=== PATIENT | male | born 1945 | race Caucasian/White ===

== ENCOUNTER 2017-11-23 12:48 | Emergency (ER) | payer MEDICARE, MEDICAID ==
[2017-11-23] MEDS ORDERED: SODIUM CHLORIDE FLUSH 10ML SYR IVF ONE (13:30)
[2017-11-23 13:50] LABS: ALBUMIN 3.3 g/dL (3.4-5.0); ANION GAP 13 mmol/L (5-15); CHLORIDE 107 mmol/L (98-107)
[2017-11-23 13:52] LABS: BASOPHILS # (AUTO) 0.03 x10^3/uL (0-0.1); BASOPHILS % (AUTO) 0 % (0-1); EOSINOPHILS # (AUTO) 0.12 x10^3/uL (0-0.4); EOSINOPHILS % (AUTO) 1 % (1-7); LYMPHOCYTES % (AUTO) 10 % (22-44); MD NO; MEAN CORPUSCULAR HEMOGLOBIN 29.3 pg (27.5-34.5); MEAN CORPUSCULAR HGB CONC 33.5 g/dL (33.2-36.2); MEAN CORPUSCULAR VOLUME 87.3 fL (81-97); MEAN PLATELET VOLUME 8.4 fL (7.4-10.4); MONOCYTES # (AUTO) 0.66 x10^3/uL (0.2-0.8); MONOCYTES % (AUTO) 7 % (2-9); NEUTROPHILS # (AUTO) 8.26 x10^3/uL (1.8-6.8); NEUTROPHILS % (AUTO) 82 % (42-75); PLATELET COUNT 303 x10^3/uL (130-400); RED BLOOD COUNT 4.08 x10^6/uL (4.38-5.82); RED CELL DISTRIBUTION WIDTH 14.6 % (9.4-14.8)
[2017-11-23 13:55] LABS: ALANINE AMINOTRANSFERASE 21 U/L (12-78); ALKALINE PHOSPHATASE 87 U/L (45-117); BILIRUBIN,TOTAL 0.2 mg/dL (0.2-1.0); CALCIUM 8.2 mg/dL (8.5-10.1); CREATININE 1.28 mg/dL (0.7-1.3); INTERNATIONAL NORMALIZED RATIO 0.93 (0.93-1.1); PROTHROMBIN TIME 9.7 Seconds (9.6-11.5); TOTAL PROTEIN 6.3 g/dL (6.4-8.2); TROPONIN I < 0.015 ng/mL (0.000-0.045)
[2017-11-23] MEDS ORDERED: METF500T5 PO (14:48)
[2017-11-23] MEDS ORDERED: SODIUM CHLORIDE 0.9% 1,000ML IVBOLUS ONE (16:30)
[2017-11-23 18:59] VITALS: BP 153/89
== END 2017-11-23 20:35 | disposition home or self-care (01) ==
LOC: ED 14:41
DX: R55 Syncope and collapse (principal); E11.9 Type 2 diabetes mellitus without complications
CPT/HCPCS: 36415; 71045; 80053; 84484; 85025; 85610; 85730; 93005; 96360; 99285; J7030

== ENCOUNTER 2018-01-10 15:19 | Inpatient (IN) | payer MEDICARE, MEDICAID ==
[~2018-01-10] VITALS: Ht 175.3 cm; Wt 79.5 kg
[~2018-01-10 15:19] MED LIST: METF500T17 PO
[2018-01-10] MEDS ORDERED: SODIUM CHLORIDE 0.9% 1,000ML IVBOLUS ONE (16:00)
[2018-01-10 16:19] LABS: BASOPHILS # (AUTO) 0.03 x10^3/uL (0-0.1); BASOPHILS % (AUTO) 0 % (0-1); EOSINOPHILS # (AUTO) 0.77 x10^3/uL (0-0.4); EOSINOPHILS % (AUTO) 7 % (1-7); LYMPHOCYTES # (AUTO) 1.12 x10^3/uL (1-3.4); LYMPHOCYTES % (AUTO) 11 % (22-44); MD NO; MEAN CORPUSCULAR HEMOGLOBIN 28.7 pg (27.5-34.5); MEAN CORPUSCULAR HGB CONC 33.6 g/dL (33.2-36.2); MEAN CORPUSCULAR VOLUME 85.2 fL (81-97); MEAN PLATELET VOLUME 8.8 fL (7.4-10.4); MONOCYTES % (AUTO) 6 % (2-9); NEUTROPHILS # (AUTO) 7.91 x10^3/uL (1.8-6.8); NEUTROPHILS % (AUTO) 76 % (42-75); PLATELET COUNT 293 x10^3/uL (130-400); RED CELL DISTRIBUTION WIDTH 14.4 % (9.4-14.8)
[2018-01-10 16:21] LABS: INTERNATIONAL NORMALIZED RATIO 0.98 (0.93-1.1); PROTHROMBIN TIME 10.2 Seconds (9.6-11.5)
[2018-01-10 16:25] LABS: ALANINE AMINOTRANSFERASE 21 U/L (12-78); ALBUMIN 3.5 g/dL (3.4-5.0); ANION GAP 8 mmol/L (5-15); CHLORIDE 109 mmol/L (98-107)
[2018-01-10 16:30] LABS: ALKALINE PHOSPHATASE 134 U/L (45-117); BILIRUBIN,TOTAL 0.3 mg/dL (0.2-1.0); TROPONIN I < 0.015 ng/mL (0.000-0.045)
[2018-01-10 18:03] VITALS: BP 157/93
[2018-01-10] MEDS ORDERED: ACETAMINOPHEN 325 MG TABLET PO PRN (18:30)
[2018-01-10] MEDS ORDERED: ONDANSETRON ODT 4 MG PO PRN (18:30)
[2018-01-10] MEDS: HEPARIN 5,000 UNITS/ML, 1ML SQ SCH (18:38)
[2018-01-10] MEDS: SODIUM CHLORIDE 0.9% 1,000 ML IV SCH (18:43)
[2018-01-10 19:07] VITALS: BP 154/91
[2018-01-10 19:24] LABS: HEMOGLOBIN A1C 11.4 % (4.2-6.3)
[2018-01-10] MEDS ORDERED: GLUCAGON 1 MG IM PRN (20:30)
[2018-01-10] MEDS ORDERED: DEXTROSE 50%, 50ML SYRINGE IVPush PRN (20:30)
[2018-01-10] MEDS ORDERED: DEXTROSE 4 GM TAB.CHEW PO PRN (20:30)
[2018-01-10] MEDS ORDERED: INSULIN LISPRO 100 UNITS/ML, PEN SQ-INSULIN SCH (21:00)
[2018-01-10 21:30] LABS: MICROSCOPIC NOT IND
[2018-01-10 21:37] LABS: CULTURE INDICATED? NO
[2018-01-10] MEDS: SODIUM CHLORIDE FLUSH 10ML SYR IVF SCH (22:13)
[2018-01-10] MEDS: INSULIN LISPRO 100 UNITS/ML, PEN SQ-INSULIN SCH (22:13)
[2018-01-11] VITALS (10 sets, daily range): BP systolic 108–161; BP diastolic 65–93
[2018-01-11] MEDS: SODIUM CHLORIDE 0.9% 1,000 ML IV SCH ×2 (02:27→13:24)
[2018-01-11] MEDS: HEPARIN 5,000 UNITS/ML, 1ML SQ SCH ×3 (02:27→20:13)
[2018-01-11 05:58] LABS: BASOPHILS # (AUTO) 0.02 x10^3/uL (0-0.1); BASOPHILS % (AUTO) 0 % (0-1); EOSINOPHILS # (AUTO) 0.75 x10^3/uL (0-0.4); EOSINOPHILS % (AUTO) 9 % (1-7); LYMPHOCYTES # (AUTO) 2.07 x10^3/uL (1-3.4); LYMPHOCYTES % (AUTO) 25 % (22-44); MD NO; MEAN CORPUSCULAR HEMOGLOBIN 28.3 pg (27.5-34.5); MEAN CORPUSCULAR HGB CONC 33.4 g/dL (33.2-36.2); MEAN CORPUSCULAR VOLUME 84.5 fL (81-97); MEAN PLATELET VOLUME 8.2 fL (7.4-10.4); MONOCYTES # (AUTO) 0.67 x10^3/uL (0.2-0.8); MONOCYTES % (AUTO) 8 % (2-9); NEUTROPHILS # (AUTO) 4.76 x10^3/uL (1.8-6.8); NEUTROPHILS % (AUTO) 58 % (42-75); PLATELET COUNT 262 x10^3/uL (130-400); RED BLOOD COUNT 3.95 x10^6/uL (4.38-5.82)
[2018-01-11 06:11] LABS: CHLORIDE 107 mmol/L (98-107)
[2018-01-11 06:30] LABS: ALANINE AMINOTRANSFERASE 18 U/L (12-78); ALKALINE PHOSPHATASE 107 U/L (45-117); ANION GAP 9 mmol/L (5-15); BILIRUBIN,TOTAL 0.3 mg/dL (0.2-1.0); CALCIUM 8.2 mg/dL (8.5-10.1); CHOL/HDL RATIO 4.1; CHOLESTEROL, TOTAL 152 mg/dL (140-239); CREATININE 1.02 mg/dL (0.7-1.3); HDL CHOL % 24 % (26-37); HDL CHOLESTEROL (DIRECT) 37 mg/dL (40-60); LDL CHOLESTEROL,CALCULATED 96 mg/dL (54-169); LDL/HDL RATIO 2.6 (0.5-3.0); TOTAL PROTEIN 5.9 g/dL (6.4-8.2); TRIGLYCERIDES 94 mg/dL (50-200); VLDL CHOLESTEROL 19 mg/dL (0-25)
[2018-01-11] MEDS: SODIUM CHLORIDE FLUSH 10ML SYR IVF SCH ×2 (09:10→21:52)
[2018-01-11] MEDS: INSULIN LISPRO 100 UNITS/ML, PEN SQ-INSULIN SCH ×4 (09:10→21:53)
[2018-01-11] MEDS ORDERED: MAGNESIUM SULFATE PMX 4GM/100M 100 ML IV ONE (11:30)
[2018-01-11 12:33] LABS: MICROSCOPIC NOT IND
[2018-01-11 12:40] LABS: CULTURE INDICATED? NO
[2018-01-11] MEDS ORDERED: SERT50TA5 PO (15:34)
[2018-01-11] MEDS ORDERED: CYAN100T PO (15:34)
[2018-01-11] MEDS ORDERED: ASPI81TA50 PO (15:34)
[2018-01-11] MEDS ORDERED: PSYL1PAC9 PO (15:34)
[2018-01-11] MEDS ORDERED: SITA50TA PO (15:34)
[2018-01-11] MEDS ORDERED: LEVO50TA5 PO (15:34)
[2018-01-11] MEDS ORDERED: LISI-167 PO (15:34)
[2018-01-11] MEDS ORDERED: ATOR20TA9 PO (15:34)
[2018-01-11] MEDS ORDERED: GABA300C10 PO (15:34)
[2018-01-11] MEDS ORDERED: METF10007 PO (15:34)
[2018-01-11] MEDS ORDERED: BENZ-17 PO (16:55)
[2018-01-11] MEDS ORDERED: ALBU18HF INH (16:55)
[2018-01-11] MEDS ORDERED: ACET325T26 PO (16:55)
[2018-01-11] MEDS ORDERED: TIZA2CAP PO (16:55)
[2018-01-11] MEDS ORDERED: BISM262O17 PO (17:04)
[2018-01-11] MEDS ORDERED: ATORVASTATIN 20 MG TABLET PO SCH (21:00)
[2018-01-11] MEDS: GABAPENTIN 300 MG CAPSULE PO SCH (21:52)
[2018-01-12 01:24] VITALS: BP 161/91
[2018-01-12] MEDS: SODIUM CHLORIDE 0.9% 1,000 ML IV SCH ×2 (01:34→08:10)
[2018-01-12 02:00] VITALS: BP 165/92
[2018-01-12] MEDS: HEPARIN 5,000 UNITS/ML, 1ML SQ SCH ×2 (03:38→11:20)
[2018-01-12] MEDS ORDERED: LEVOTHYROXINE 50 MCG TABLET PO SCH (06:00)
[2018-01-12 06:20] LABS: BASOPHILS # (AUTO) 0.04 x10^3/uL (0-0.1); BASOPHILS % (AUTO) 1 % (0-1); EOSINOPHILS # (AUTO) 0.93 x10^3/uL (0-0.4); EOSINOPHILS % (AUTO) 11 % (1-7); LYMPHOCYTES % (AUTO) 25 % (22-44); MD NO; MEAN CORPUSCULAR HEMOGLOBIN 28.5 pg (27.5-34.5); MEAN CORPUSCULAR HGB CONC 33.1 g/dL (33.2-36.2); MEAN PLATELET VOLUME 8.2 fL (7.4-10.4); MONOCYTES # (AUTO) 0.61 x10^3/uL (0.2-0.8); MONOCYTES % (AUTO) 7 % (2-9); NEUTROPHILS # (AUTO) 5.06 x10^3/uL (1.8-6.8); NEUTROPHILS % (AUTO) 57 % (42-75); PLATELET COUNT 258 x10^3/uL (130-400); RED BLOOD COUNT 3.95 x10^6/uL (4.38-5.82); RED CELL DISTRIBUTION WIDTH 14.5 % (9.4-14.8)
[2018-01-12 06:29] LABS: ANION GAP 7 mmol/L (5-15); CALCIUM 8.1 mg/dL (8.5-10.1); CHLORIDE 110 mmol/L (98-107); CREATININE 0.82 mg/dL (0.7-1.3)
[2018-01-12] MEDS: INSULIN LISPRO 100 UNITS/ML, PEN SQ-INSULIN SCH ×2 (07:00→11:19)
[2018-01-12 08:07] VITALS: BP 162/97
[2018-01-12] MEDS: SODIUM CHLORIDE FLUSH 10ML SYR IVF SCH (08:10)
[2018-01-12] MEDS: GABAPENTIN 300 MG CAPSULE PO SCH (08:10)
[2018-01-12] MEDS ORDERED: SERTRALINE 50MG TABLET PO SCH (09:00)
[2018-01-12] MEDS ORDERED: CYANOCOBALOMIN 100MCG TABLET PO SCH (09:00)
[2018-01-12] MEDS ORDERED: ASPIRIN 81 MG TABLET EC PO SCH (10:00)
[2018-01-12 13:04] VITALS: BP 159/85
[2018-01-13] MEDS ORDERED: ASPIRIN 81 MG TABLET EC PO SCH (09:00)
== END 2018-01-12 14:34 | disposition home or self-care (01) | DRG 312 ==
LOC: ED 17:11 → 4WST 17:12 → ED 17:49
PROVIDERS: ADMIT Hospitalist; ATTEND Hospitalist
PROC: 0T9B70Z Drainage of Bladder with Drainage Device, Via Natural or Artificial Opening (ICD-10-PCS; principal; 2018-01-10)
DX: I95.1 Orthostatic hypotension (principal); N17.0 Acute kidney failure with tubular necrosis; E87.2 Acidosis; E11.65 Type 2 diabetes mellitus with hyperglycemia; E86.9 Volume depletion, unspecified; I10 Essential (primary) hypertension; Z91.19 Patient's noncompliance with other medical treatment and regimen; E78.5 Hyperlipidemia, unspecified; D72.829 Elevated white blood cell count, unspecified; E83.42 Hypomagnesemia; Z87.891 Personal history of nicotine dependence; Z87.820 Personal history of traumatic brain injury; Z79.84 Long term (current) use of oral hypoglycemic drugs; Z99.3 Dependence on wheelchair; Z88.0 Allergy status to penicillin
CPT/HCPCS: 36415; 71045; 80048; 80053; 80061; 81003; 82947; 82962; 83036; 83605; 83690; 83735; 83880; 84100; 84443; 84484; 85025; 85610; 93005; 93306; 96372; 99291; G0378; J1644; J1815; J3475; J7030

== ENCOUNTER 2018-06-09 14:40 | Inpatient (IN) | payer MEDICARE, MEDICAID ==
[~2018-06-09] VITALS: Ht 175.3 cm; Wt 79.7 kg
[~2018-06-09 14:40] MED LIST changes: +ACET325T26 PO; +ALBU18HF INH; +ASPI81TA50 PO; +ATOR-2 PO; +ATOR20TA37 PO; +BENZ-17 PO; +BISM262O17 PO; +CARV3.1212 PO; +CYAN100T PO; +DOXY100T PO; +GABA300C10 PO; +INSU100I13 SQ-INSULIN; +LEVO50TA5 PO; +LISI-167 PO; +METF10007 PO; +PSYL1PAC9 PO; +SERT50TA28 PO; +SITA50TA PO; +TICA90TA PO; +TIZA2CAP PO
[2018-06-09] MEDS ORDERED: SODIUM CHLORIDE FLUSH 10ML SYR IVF ONE (15:00)
--- NOTE | 2018-06-09 15:20 | NUR ---
PT SENT FROM [facility] FOR BLOOD IN THE CATHETER SINCE YESTERDAY. PT DENIES ANY PAIN OR ANY OTHER COMPLAINT. IV STARTED AND LABS COLLECTED. PT ON MONITOR. WILL START [address] DRAKE.
[2018-06-09 15:25] LABS: BASOPHILS # (AUTO) 0.01 x10^3/uL (0-0.1); BASOPHILS % (AUTO) 0 % (0-1); EOSINOPHILS % (AUTO) 3 % (1-7); LYMPHOCYTES # (AUTO) 1.22 x10^3/uL (1-3.4); LYMPHOCYTES % (AUTO) 12 % (22-44); MD NO; MEAN CORPUSCULAR HEMOGLOBIN 28.1 pg (27.5-34.5); MEAN CORPUSCULAR HGB CONC 32.9 g/dL (33.2-36.2); MEAN CORPUSCULAR VOLUME 85.3 fL (81-97); MEAN PLATELET VOLUME 8.3 fL (7.4-10.4); MONOCYTES # (AUTO) 0.71 x10^3/uL (0.2-0.8); MONOCYTES % (AUTO) 7 % (2-9); NEUTROPHILS # (AUTO) 8.05 x10^3/uL (1.8-6.8); NEUTROPHILS % (AUTO) 78 % (42-75); PLATELET COUNT 379 x10^3/uL (130-400); RED BLOOD COUNT 4.51 x10^6/uL (4.38-5.82); RED CELL DISTRIBUTION WIDTH 13.6 % (9.4-14.8)
[2018-06-09] MEDS ORDERED: BRIM5DRO2 EACHEYE (15:26)
[2018-06-09 15:34] LABS: ALANINE AMINOTRANSFERASE 23 U/L (12-78); ALBUMIN 3.4 g/dL (3.4-5.0); ANION GAP 8 mmol/L (5-15); CALCIUM 8.8 mg/dL (8.5-10.1); CHLORIDE 105 mmol/L (98-107)
[2018-06-09 15:38] LABS: ALKALINE PHOSPHATASE 123 U/L (45-117); BILIRUBIN,TOTAL 0.4 mg/dL (0.2-1.0); CREATININE 1.33 mg/dL (0.7-1.3); TOTAL PROTEIN 7.1 g/dL (6.4-8.2)
[2018-06-09 15:42] LABS: INTERNATIONAL NORMALIZED RATIO 0.94 (0.93-1.1)
--- NOTE | 2018-06-09 15:50 | NUR ---
PT IN RAD.
[2018-06-09] MEDS ORDERED: OMNIPAQUE 350 MG/ML, 150 ML BOTTLE ONE (15:55)
--- NOTE | 2018-06-09 16:12 | NUR ---
PT IN RAD.
[2018-06-09] MEDS ORDERED: SODIUM CHLORIDE 0.9% 1,000 ML IV SCH (16:42)
--- NOTE | 2018-06-09 16:45 | NUR ---
HOSPITALIST AT BEDSIDE. [address] WAY CUI IRRIGATION STARTED AND URINE COLOR TURNED LIGHT PINK ALMOST IMMEDIATELY. PT TOLERATED PROCEDURE WELL.
[2018-06-09] MEDS ORDERED: ONDANSETRON ODT 4 MG PO PRN (17:00)
[2018-06-09] MEDS ORDERED: DEXTROSE 4 GM TAB.CHEW PO PRN (17:00)
[2018-06-09] MEDS ORDERED: GLUCAGON 1 MG IM PRN (17:00)
[2018-06-09] MEDS ORDERED: DOCUSATE 100 MG CAPSULE PO PRN (17:00)
[2018-06-09] MEDS ORDERED: DEXTROSE 50%, 50ML SYRINGE IVPush PRN (17:00)
[2018-06-09] MEDS ORDERED: PHARMACY MAY ADJ FOR RENAL FX MC PRN (17:30)
--- NOTE | 2018-06-09 17:45 | NUR ---
REPORT TO RAMYA SANTANA FOR LUNCH. URINE CLEAR WITH SECOND BAG OF NS RUNNING.
[2018-06-09] MEDS: CARVEDILOL 3.125 MG TABLET PO SCH (18:00)
--- NOTE | 2018-06-09 18:09 | NUR ---
TASK RN: REPORT GIVEN TO MARIA EUGENIA FLETCHER RN. ALL QUESTIONS ANSWERED. AWAITING PT TRANSPORT.
[2018-06-09 18:52] LABS: CLOSTRIDIUM DIFFICILE ANTIGEN NEGATIVE; CLOSTRIDIUM DIFFICILE TOXIN NEGATIVE (Negative)
[2018-06-09] MEDS: TEMPLATE NON-FORMULARY MED. (Brimonidine Tartrate/Timolol (Combigan Eye Drops) 1 DROP) EACHEYE SCH (21:00)
[2018-06-09] MEDS: PSYLLIUM PACKET PO SCH (21:00)
[2018-06-09] MEDS ORDERED: LISINOPRIL 10 MG TABLET PO SCH (21:00)
[2018-06-09] MEDS: SODIUM CHLORIDE FLUSH 10ML SYR IVF SCH (21:00)
[2018-06-09 21:18] VITALS: BP 126/78
[2018-06-09] MEDS: TICAGRELOR 90 MG TABLET PO SCH (21:20)
[2018-06-09] MEDS: GABAPENTIN 300 MG CAPSULE PO SCH (21:20)
[2018-06-09] MEDS: ATORVASTATIN 80 MG TABLET PO SCH (21:20)
[2018-06-10 01:20] VITALS: BP 97/57
[2018-06-10] MEDS: CARVEDILOL 3.125 MG TABLET PO SCH ×2 (04:12→16:26)
[2018-06-10 05:16] LABS: ANION GAP 8 mmol/L (5-15); CALCIUM 8.3 mg/dL (8.5-10.1); CHLORIDE 109 mmol/L (98-107); CREATININE 1.05 mg/dL (0.7-1.3)
[2018-06-10 05:18] LABS: BASOPHILS # (AUTO) 0.03 x10^3/uL (0-0.1); BASOPHILS % (AUTO) 0 % (0-1); EOSINOPHILS # (AUTO) 0.26 x10^3/uL (0-0.4); EOSINOPHILS % (AUTO) 3 % (1-7); LYMPHOCYTES # (AUTO) 1.09 x10^3/uL (1-3.4); LYMPHOCYTES % (AUTO) 12 % (22-44); MD NO; MEAN CORPUSCULAR HEMOGLOBIN 28.8 pg (27.5-34.5); MEAN CORPUSCULAR HGB CONC 33.5 g/dL (33.2-36.2); MEAN CORPUSCULAR VOLUME 85.9 fL (81-97); MEAN PLATELET VOLUME 8.7 fL (7.4-10.4); MONOCYTES # (AUTO) 0.74 x10^3/uL (0.2-0.8); MONOCYTES % (AUTO) 8 % (2-9); NEUTROPHILS # (AUTO) 6.67 x10^3/uL (1.8-6.8); NEUTROPHILS % (AUTO) 76 % (42-75); PLATELET COUNT 279 x10^3/uL (130-400); RED BLOOD COUNT 3.79 x10^6/uL (4.38-5.82); RED CELL DISTRIBUTION WIDTH 13.7 % (9.4-14.8)
[2018-06-10] MEDS: PSYLLIUM PACKET PO SCH ×2 (07:16→21:00)
[2018-06-10 07:35] VITALS: BP 128/79
[2018-06-10] MEDS: SODIUM CHLORIDE FLUSH 10ML SYR IVF SCH ×2 (08:35→21:00)
[2018-06-10] MEDS: TEMPLATE NON-FORMULARY MED. (Brimonidine Tartrate/Timolol (Combigan Eye Drops) 1 DROP) EACHEYE SCH ×2 (08:35→21:00)
[2018-06-10] MEDS: GABAPENTIN 300 MG CAPSULE PO SCH ×3 (08:36→21:35)
[2018-06-10] MEDS: SERTRALINE 50MG TABLET PO SCH (08:36)
[2018-06-10] MEDS: LISINOPRIL 5 MG TABLET PO SCH ×2 (08:37→21:00)
[2018-06-10] MEDS: FINASTERIDE 5 MG TABLET PO SCH (08:37)
[2018-06-10] MEDS: CYANOCOBALOMIN 100MCG TABLET PO SCH (08:38)
[2018-06-10] MEDS: TICAGRELOR 90 MG TABLET PO SCH (08:38)
[2018-06-10] MEDS: LEVOTHYROXINE 50 MCG TABLET PO SCH (08:44)
[2018-06-10 13:33] VITALS: BP 120/71
[2018-06-10] MEDS: INSULIN LISPRO 100 UNITS/ML, PEN SQ-INSULIN SCH ×2 (17:06→21:34)
[2018-06-10 18:57] LABS: BASOPHILS # (AUTO) 0.04 x10^3/uL (0-0.1); BASOPHILS % (AUTO) 1 % (0-1); EOSINOPHILS # (AUTO) 0.28 x10^3/uL (0-0.4); EOSINOPHILS % (AUTO) 4 % (1-7); LYMPHOCYTES # (AUTO) 1.13 x10^3/uL (1-3.4); LYMPHOCYTES % (AUTO) 15 % (22-44); MD NO; MEAN CORPUSCULAR HEMOGLOBIN 28.9 pg (27.5-34.5); MEAN CORPUSCULAR HGB CONC 33.8 g/dL (33.2-36.2); MEAN CORPUSCULAR VOLUME 85.5 fL (81-97); MEAN PLATELET VOLUME 8.4 fL (7.4-10.4); MONOCYTES # (AUTO) 0.66 x10^3/uL (0.2-0.8); MONOCYTES % (AUTO) 9 % (2-9); NEUTROPHILS % (AUTO) 72 % (42-75); PLATELET COUNT 331 x10^3/uL (130-400); RED BLOOD COUNT 3.76 x10^6/uL (4.38-5.82); RED CELL DISTRIBUTION WIDTH 13.8 % (9.4-14.8)
[2018-06-10 19:04] VITALS: BP 118/69
[2018-06-10] MEDS ORDERED: INSULIN GLARGINE 100 UNITS/ML, PEN SQ-INSULIN SCH (21:00)
[2018-06-10] MEDS: ATORVASTATIN 80 MG TABLET PO SCH (21:36)
[2018-06-11 01:15] VITALS: BP 104/64
[2018-06-11 05:17] LABS: BASOPHILS # (AUTO) 0.01 x10^3/uL (0-0.1); BASOPHILS % (AUTO) 0 % (0-1); EOSINOPHILS % (AUTO) 6 % (1-7); LYMPHOCYTES # (AUTO) 1.04 x10^3/uL (1-3.4); LYMPHOCYTES % (AUTO) 16 % (22-44); MD NO; MEAN CORPUSCULAR HEMOGLOBIN 28.6 pg (27.5-34.5); MEAN CORPUSCULAR HGB CONC 33.3 g/dL (33.2-36.2); MEAN CORPUSCULAR VOLUME 85.7 fL (81-97); MEAN PLATELET VOLUME 8.6 fL (7.4-10.4); MONOCYTES % (AUTO) 12 % (2-9); NEUTROPHILS # (AUTO) 4.36 x10^3/uL (1.8-6.8); NEUTROPHILS % (AUTO) 66 % (42-75); PLATELET COUNT 307 x10^3/uL (130-400); RED BLOOD COUNT 3.59 x10^6/uL (4.38-5.82); RED CELL DISTRIBUTION WIDTH 13.8 % (9.4-14.8)
[2018-06-11 05:23] LABS: CHLORIDE 109 mmol/L (98-107)
[2018-06-11 05:30] LABS: ALANINE AMINOTRANSFERASE 14 U/L (12-78); ALBUMIN 2.5 g/dL (3.4-5.0); ALKALINE PHOSPHATASE 99 U/L (45-117); ANION GAP 7 mmol/L (5-15); BILIRUBIN,TOTAL 0.5 mg/dL (0.2-1.0); CREATININE 1.19 mg/dL (0.7-1.3); TOTAL PROTEIN 5.7 g/dL (6.4-8.2)
[2018-06-11] MEDS: CARVEDILOL 3.125 MG TABLET PO SCH ×2 (06:00→16:41)
[2018-06-11] MEDS: LEVOTHYROXINE 50 MCG TABLET PO SCH (06:03)
[2018-06-11] MEDS: TEMPLATE NON-FORMULARY MED. (Brimonidine Tartrate/Timolol (Combigan Eye Drops) 1 DROP) EACHEYE SCH ×2 (07:28→20:57)
[2018-06-11] MEDS: PSYLLIUM PACKET PO SCH ×2 (07:28→20:15)
[2018-06-11] MEDS: INSULIN LISPRO 100 UNITS/ML, PEN SQ-INSULIN SCH ×4 (07:34→20:54)
[2018-06-11] MEDS: LISINOPRIL 5 MG TABLET PO SCH ×2 (07:35→20:16)
[2018-06-11] MEDS: CYANOCOBALOMIN 100MCG TABLET PO SCH (07:35)
[2018-06-11] MEDS: CLOPIDOGREL 75 MG TABLET PO SCH (07:35)
[2018-06-11] MEDS: SODIUM CHLORIDE FLUSH 10ML SYR IVF SCH ×2 (07:35→20:14)
[2018-06-11] MEDS: SERTRALINE 50MG TABLET PO SCH (07:35)
[2018-06-11] MEDS: FINASTERIDE 5 MG TABLET PO SCH (07:35)
[2018-06-11] MEDS: GABAPENTIN 300 MG CAPSULE PO SCH ×3 (07:36→20:15)
[2018-06-11 08:32] VITALS: BP 100/61
[2018-06-11] MEDS ORDERED: ASPIRIN 81 MG TABLET EC PO SCH (09:00)
[2018-06-11 14:13] VITALS: BP 110/66
[2018-06-11 18:46] LABS: BASOPHILS # (AUTO) 0.02 x10^3/uL (0-0.1); BASOPHILS % (AUTO) 0 % (0-1); EOSINOPHILS # (AUTO) 0.49 x10^3/uL (0-0.4); EOSINOPHILS % (AUTO) 8 % (1-7); LYMPHOCYTES # (AUTO) 1.09 x10^3/uL (1-3.4); LYMPHOCYTES % (AUTO) 17 % (22-44); MD NO; MEAN CORPUSCULAR HEMOGLOBIN 29.1 pg (27.5-34.5); MEAN CORPUSCULAR HGB CONC 34.1 g/dL (33.2-36.2); MEAN CORPUSCULAR VOLUME 85.3 fL (81-97); MEAN PLATELET VOLUME 8.5 fL (7.4-10.4); MONOCYTES % (AUTO) 11 % (2-9); NEUTROPHILS # (AUTO) 4.13 x10^3/uL (1.8-6.8); NEUTROPHILS % (AUTO) 64 % (42-75); PLATELET COUNT 331 x10^3/uL (130-400); RED BLOOD COUNT 3.56 x10^6/uL (4.38-5.82)
[2018-06-11 19:30] VITALS: BP 127/73
[2018-06-11] MEDS: ATORVASTATIN 80 MG TABLET PO SCH (20:15)
[2018-06-11] MEDS ORDERED: INSULIN GLARGINE 100 UNITS/ML, PEN SQ-INSULIN SCH (21:00)
[2018-06-11] MEDS ORDERED: INSULIN GLARGINE 100 UNITS/ML, PEN SQ-INSULIN ONE (21:00)
[2018-06-12 01:22] VITALS: BP 98/58
[2018-06-12 04:26] VITALS: BP 111/72
[2018-06-12 05:58] VITALS: BP 127/78
[2018-06-12] MEDS: CARVEDILOL 3.125 MG TABLET PO SCH ×2 (06:01→18:33)
[2018-06-12] MEDS: LEVOTHYROXINE 50 MCG TABLET PO SCH (06:01)
[2018-06-12 06:10] LABS: BASOPHILS # (AUTO) 0.02 x10^3/uL (0-0.1); BASOPHILS % (AUTO) 0 % (0-1); EOSINOPHILS # (AUTO) 0.55 x10^3/uL (0-0.4); EOSINOPHILS % (AUTO) 8 % (1-7); LYMPHOCYTES # (AUTO) 1.12 x10^3/uL (1-3.4); LYMPHOCYTES % (AUTO) 17 % (22-44); MD NO; MEAN CORPUSCULAR HEMOGLOBIN 29.2 pg (27.5-34.5); MEAN CORPUSCULAR HGB CONC 34.2 g/dL (33.2-36.2); MEAN CORPUSCULAR VOLUME 85.4 fL (81-97); MEAN PLATELET VOLUME 8.3 fL (7.4-10.4); MONOCYTES # (AUTO) 0.77 x10^3/uL (0.2-0.8); MONOCYTES % (AUTO) 12 % (2-9); NEUTROPHILS # (AUTO) 4.11 x10^3/uL (1.8-6.8); NEUTROPHILS % (AUTO) 63 % (42-75); PLATELET COUNT 315 x10^3/uL (130-400); RED BLOOD COUNT 3.57 x10^6/uL (4.38-5.82)
[2018-06-12 06:22] LABS: ALBUMIN 2.6 g/dL (3.4-5.0); ANION GAP 5 mmol/L (5-15); CALCIUM 8.5 mg/dL (8.5-10.1); CHLORIDE 110 mmol/L (98-107)
[2018-06-12 06:30] LABS: ALANINE AMINOTRANSFERASE 15 U/L (12-78); ALKALINE PHOSPHATASE 98 U/L (45-117); CREATININE 1.12 mg/dL (0.7-1.3); TOTAL PROTEIN 5.8 g/dL (6.4-8.2)
[2018-06-12 06:46] VITALS: BP 128/78
[2018-06-12] MEDS: INSULIN LISPRO 100 UNITS/ML, PEN SQ-INSULIN SCH ×4 (07:00→21:00)
[2018-06-12] MEDS: PSYLLIUM PACKET PO SCH ×2 (09:00→21:00)
[2018-06-12] MEDS: SODIUM CHLORIDE FLUSH 10ML SYR IVF SCH ×2 (09:00→21:49)
[2018-06-12] MEDS: TEMPLATE NON-FORMULARY MED. (Brimonidine Tartrate/Timolol (Combigan Eye Drops) 1 DROP) EACHEYE SCH ×2 (09:00→21:00)
[2018-06-12] MEDS: CLOPIDOGREL 75 MG TABLET PO SCH (09:00)
[2018-06-12] MEDS: CYANOCOBALOMIN 100MCG TABLET PO SCH (11:02)
[2018-06-12] MEDS: GABAPENTIN 300 MG CAPSULE PO SCH ×3 (11:02→21:44)
[2018-06-12] MEDS: FINASTERIDE 5 MG TABLET PO SCH (11:03)
[2018-06-12] MEDS: LISINOPRIL 5 MG TABLET PO SCH ×2 (11:03→21:45)
[2018-06-12] MEDS: SERTRALINE 50MG TABLET PO SCH (11:03)
[2018-06-12 13:01] VITALS: BP 126/75
[2018-06-12] MEDS ORDERED: FENTANYL PF 250 MCG/5ML ONE (15:20)
[2018-06-12] MEDS ORDERED: PROPOFOL 10 MG/ML, 20ML ONE (15:25)
[2018-06-12] MEDS ORDERED: CEFAZOLIN 1,000 MG ONE (15:25)
[2018-06-12] MEDS ORDERED: FENTANYL PF 100 MCG/2ML IV PRN (16:00)
[2018-06-12] MEDS ORDERED: ONDANSETRON 2MG/ML, 2ML IV PRN (16:00)
[2018-06-12] MEDS ORDERED: PROMETHAZINE 25 MG/ML, 1ML IV PRN (16:00)
[2018-06-12] MEDS ORDERED: MORPHINE SULFATE 4 MG/ML, 1ML IVPush PRN (16:00)
[2018-06-12] MEDS ORDERED: PROMETHAZINE 25 MG SUPP PR PRN (16:00)
[2018-06-12] MEDS ORDERED: ONDANSETRON ODT 8 MG PO PRN (16:00)
[2018-06-12] MEDS ORDERED: PROMETHAZINE 12.5 MG SUPP PR PRN (16:00)
[2018-06-12] MEDS ORDERED: OXYcodone 5 MG/5 ML ORAL.SOL UDC PO PRN (16:00)
[2018-06-12] MEDS ORDERED: OXYcodone 5 MG/5 ML ORAL.SOL UDC ONE (16:28)
[2018-06-12] MEDS ORDERED: FENTANYL PF 100 MCG/2ML ONE (16:28)
[2018-06-12 18:24] LABS: BASOPHILS # (AUTO) 0.08 x10^3/uL (0-0.1); BASOPHILS % (AUTO) 1 % (0-1); EOSINOPHILS # (AUTO) 0.59 x10^3/uL (0-0.4); EOSINOPHILS % (AUTO) 9 % (1-7); LYMPHOCYTES # (AUTO) 1.26 x10^3/uL (1-3.4); LYMPHOCYTES % (AUTO) 19 % (22-44); MD NO; MEAN CORPUSCULAR HEMOGLOBIN 28.9 pg (27.5-34.5); MEAN CORPUSCULAR HGB CONC 33.6 g/dL (33.2-36.2); MEAN CORPUSCULAR VOLUME 85.9 fL (81-97); MONOCYTES # (AUTO) 0.71 x10^3/uL (0.2-0.8); MONOCYTES % (AUTO) 11 % (2-9); NEUTROPHILS # (AUTO) 3.93 x10^3/uL (1.8-6.8); NEUTROPHILS % (AUTO) 60 % (42-75); PLATELET COUNT 344 x10^3/uL (130-400); RED BLOOD COUNT 3.79 x10^6/uL (4.38-5.82)
[2018-06-12 19:28] VITALS: BP 104/69
[2018-06-12] MEDS: ATORVASTATIN 80 MG TABLET PO SCH (21:45)
[2018-06-12] MEDS: INSULIN GLARGINE 100 UNITS/ML, PEN SQ-INSULIN SCH (21:47)
[2018-06-13 00:38] LABS: MICROSCOPIC AUTO
[2018-06-13 00:39] LABS: CULTURE INDICATED? YES
[2018-06-13 01:05] VITALS: BP 130/78
[2018-06-13 04:51] LABS: BASOPHILS # (AUTO) 0.01 x10^3/uL (0-0.1); BASOPHILS % (AUTO) 0 % (0-1); EOSINOPHILS # (AUTO) 0.56 x10^3/uL (0-0.4); EOSINOPHILS % (AUTO) 6 % (1-7); LYMPHOCYTES # (AUTO) 0.98 x10^3/uL (1-3.4); LYMPHOCYTES % (AUTO) 11 % (22-44); MD NO; MEAN CORPUSCULAR HEMOGLOBIN 28.6 pg (27.5-34.5); MEAN CORPUSCULAR HGB CONC 32.9 g/dL (33.2-36.2); MEAN PLATELET VOLUME 8.2 fL (7.4-10.4); MONOCYTES # (AUTO) 0.11 x10^3/uL (0.2-0.8); MONOCYTES % (AUTO) 1 % (2-9); NEUTROPHILS # (AUTO) 7.49 x10^3/uL (1.8-6.8); NEUTROPHILS % (AUTO) 82 % (42-75); PLATELET COUNT 321 x10^3/uL (130-400); RED BLOOD COUNT 3.92 x10^6/uL (4.38-5.82)
[2018-06-13 06:28] VITALS: BP 114/69
[2018-06-13] MEDS: LEVOTHYROXINE 50 MCG TABLET PO SCH (06:32)
[2018-06-13] MEDS: CARVEDILOL 3.125 MG TABLET PO SCH ×2 (06:32→17:18)
[2018-06-13 07:16] VITALS: BP 129/79
[2018-06-13] MEDS: PSYLLIUM PACKET PO SCH ×2 (09:00→19:27)
[2018-06-13] MEDS: TEMPLATE NON-FORMULARY MED. (Brimonidine Tartrate/Timolol (Combigan Eye Drops) 1 DROP) EACHEYE SCH ×2 (09:00→19:27)
[2018-06-13] MEDS: INSULIN LISPRO 100 UNITS/ML, PEN SQ-INSULIN SCH ×4 (09:17→19:28)
[2018-06-13] MEDS: SODIUM CHLORIDE FLUSH 10ML SYR IVF SCH ×2 (09:18→19:24)
[2018-06-13] MEDS: FINASTERIDE 5 MG TABLET PO SCH (09:19)
[2018-06-13] MEDS: SERTRALINE 50MG TABLET PO SCH (09:19)
[2018-06-13] MEDS: CYANOCOBALOMIN 100MCG TABLET PO SCH (09:19)
[2018-06-13] MEDS: GABAPENTIN 300 MG CAPSULE PO SCH ×3 (09:19→19:27)
[2018-06-13] MEDS: LISINOPRIL 5 MG TABLET PO SCH ×2 (09:21→19:26)
[2018-06-13] MEDS: CLOPIDOGREL 75 MG TABLET PO SCH (11:06)
[2018-06-13 13:17] VITALS: BP 105/63
[2018-06-13] MEDS: ATORVASTATIN 80 MG TABLET PO SCH (19:27)
[2018-06-13] MEDS: INSULIN GLARGINE 100 UNITS/ML, PEN SQ-INSULIN SCH (19:28)
[2018-06-13 19:45] VITALS: BP 115/61
[2018-06-13] MEDS: ACETAMINOPHEN 325 MG TABLET PO PRN (19:56)
[2018-06-14] VITALS (7 sets, daily range): BP systolic 106–135; BP diastolic 56–77
[2018-06-14] MEDS: CARVEDILOL 3.125 MG TABLET PO SCH ×2 (05:55→18:15)
[2018-06-14] MEDS: LEVOTHYROXINE 50 MCG TABLET PO SCH (05:55)
[2018-06-14] MEDS: TEMPLATE NON-FORMULARY MED. (Brimonidine Tartrate/Timolol (Combigan Eye Drops) 1 DROP) EACHEYE SCH ×2 (08:21→20:51)
[2018-06-14] MEDS: INSULIN LISPRO 100 UNITS/ML, PEN SQ-INSULIN SCH ×4 (08:21→20:47)
[2018-06-14] MEDS: SODIUM CHLORIDE FLUSH 10ML SYR IVF SCH ×2 (08:21→20:48)
[2018-06-14] MEDS: GABAPENTIN 300 MG CAPSULE PO SCH ×3 (08:22→20:47)
[2018-06-14] MEDS: PSYLLIUM PACKET PO SCH ×2 (08:22→21:00)
[2018-06-14] MEDS: CLOPIDOGREL 75 MG TABLET PO SCH (08:22)
[2018-06-14] MEDS: SERTRALINE 50MG TABLET PO SCH (08:23)
[2018-06-14] MEDS: FINASTERIDE 5 MG TABLET PO SCH (08:23)
[2018-06-14] MEDS: CYANOCOBALOMIN 100MCG TABLET PO SCH (08:23)
[2018-06-14] MEDS: LISINOPRIL 5 MG TABLET PO SCH ×2 (08:23→20:48)
[2018-06-14 09:08] LABS: MEAN CORPUSCULAR HEMOGLOBIN 27.8 pg (27.5-34.5); MEAN CORPUSCULAR HGB CONC 32.7 g/dL (33.2-36.2); MEAN CORPUSCULAR VOLUME 85.1 fL (81-97); MEAN PLATELET VOLUME 8.2 fL (7.4-10.4); PLATELET COUNT 347 x10^3/uL (130-400); RED BLOOD COUNT 3.56 x10^6/uL (4.38-5.82)
[2018-06-14 09:10] LABS: ANION GAP 8 mmol/L (5-15); CALCIUM 8.4 mg/dL (8.5-10.1); CHLORIDE 105 mmol/L (98-107); CREATININE 1.29 mg/dL (0.7-1.3)
[2018-06-14 09:26] LABS: MD YES
[2018-06-14 09:27] LABS: <PLATELET ESTIMATE> ADEQUATE; <PLT MORPHOLOGY> NORMAL PLT MORPH; <RBC MORPHOLOGY> NORMAL; BANDS%(MANUAL) 9 % (0-7); LYMPH#(MANUAL) 0.31 x10^3/uL (1-3.4); LYMPHS% (MANUAL) 2 % (22-44); MONOS#(MANUAL) 1.09 x10^3/uL (0.3-2.7); MONOS% (MANUAL) 7 % (2-9); SEG#(MANUAL) 12.71 x10^3/uL (1.8-6.8); SEGS% (MANUAL) 82 % (42-75)
[2018-06-14 12:43] LABS: CULTURE INDICATED? YES; MICROSCOPIC INDICATED
[2018-06-14] MEDS: ACETAMINOPHEN 325 MG TABLET PO PRN ×2 (13:31→19:25)
[2018-06-14] MEDS: CEFTRIAXONE PMX 2GM/50ML 50 ML IV SCH (15:46)
[2018-06-14] MEDS: INSULIN GLARGINE 100 UNITS/ML, PEN SQ-INSULIN SCH (20:47)
[2018-06-14] MEDS: ATORVASTATIN 80 MG TABLET PO SCH (20:47)
[2018-06-15] VITALS (12 sets, daily range): BP systolic 99–119; BP diastolic 52–70
--- NOTE | 2018-06-15 01:45 | NUR ---
KARLOS CARVAJAL H - Fall Risk Medication(s) present and receiving anticoagulants.
[2018-06-15 04:53] LABS: BASOPHILS # (AUTO) 0.01 x10^3/uL (0-0.1); BASOPHILS % (AUTO) 0 % (0-1); EOSINOPHILS # (AUTO) 0.02 x10^3/uL (0-0.4); EOSINOPHILS % (AUTO) 0 % (1-7); LYMPHOCYTES # (AUTO) 0.63 x10^3/uL (1-3.4); LYMPHOCYTES % (AUTO) 4 % (22-44); MD NO; MEAN CORPUSCULAR HEMOGLOBIN 28.8 pg (27.5-34.5); MEAN CORPUSCULAR HGB CONC 33.8 g/dL (33.2-36.2); MEAN CORPUSCULAR VOLUME 85.1 fL (81-97); MEAN PLATELET VOLUME 8.2 fL (7.4-10.4); MONOCYTES # (AUTO) 1.18 x10^3/uL (0.2-0.8); MONOCYTES % (AUTO) 8 % (2-9); NEUTROPHILS # (AUTO) 13.81 x10^3/uL (1.8-6.8); NEUTROPHILS % (AUTO) 88 % (42-75); PLATELET COUNT 311 x10^3/uL (130-400); RED CELL DISTRIBUTION WIDTH 13.8 % (9.4-14.8)
[2018-06-15 05:00] LABS: ANION GAP 8 mmol/L (5-15); CALCIUM 8.5 mg/dL (8.5-10.1); CHLORIDE 107 mmol/L (98-107)
[2018-06-15] MEDS: CARVEDILOL 3.125 MG TABLET PO SCH ×2 (06:18→18:00)
[2018-06-15] MEDS: LEVOTHYROXINE 50 MCG TABLET PO SCH (06:18)
[2018-06-15] MEDS: INSULIN LISPRO 100 UNITS/ML, PEN SQ-INSULIN SCH ×4 (07:00→20:22)
[2018-06-15] MEDS ORDERED: SODIUM CHLORIDE 0.9% 1,000 ML IV SCH (08:00)
[2018-06-15] MEDS: SODIUM CHLORIDE FLUSH 10ML SYR IVF SCH ×2 (09:00→20:19)
[2018-06-15] MEDS: TEMPLATE NON-FORMULARY MED. (Brimonidine Tartrate/Timolol (Combigan Eye Drops) 1 DROP) EACHEYE SCH ×2 (09:00→20:52)
[2018-06-15] MEDS: ACETAMINOPHEN 325 MG TABLET PO PRN ×2 (10:37→20:19)
[2018-06-15] MEDS: GABAPENTIN 300 MG CAPSULE PO SCH ×3 (11:03→20:19)
[2018-06-15] MEDS: LISINOPRIL 5 MG TABLET PO SCH ×2 (11:03→20:19)
[2018-06-15] MEDS: CLOPIDOGREL 75 MG TABLET PO SCH (11:03)
[2018-06-15] MEDS: FINASTERIDE 5 MG TABLET PO SCH (11:03)
[2018-06-15] MEDS: SERTRALINE 50MG TABLET PO SCH (11:03)
[2018-06-15] MEDS: CYANOCOBALOMIN 100MCG TABLET PO SCH (11:04)
[2018-06-15] MEDS: PSYLLIUM PACKET PO SCH ×2 (11:04→20:52)
[2018-06-15] MEDS: CEFTRIAXONE PMX 2GM/50ML 50 ML IV SCH (17:10)
[2018-06-15] MEDS: ATORVASTATIN 80 MG TABLET PO SCH (20:19)
[2018-06-15] MEDS: INSULIN GLARGINE 100 UNITS/ML, PEN SQ-INSULIN SCH (20:21)
[2018-06-16 02:00] VITALS: BP 98/54
[2018-06-16] MEDS ORDERED: SODIUM CHLORIDE 0.9%, 500ML IVBOLUS ONE (03:00)
[2018-06-16 05:01] LABS: MEAN CORPUSCULAR HEMOGLOBIN 28.8 pg (27.5-34.5); MEAN CORPUSCULAR HGB CONC 33.5 g/dL (33.2-36.2); MEAN CORPUSCULAR VOLUME 86.1 fL (81-97); MEAN PLATELET VOLUME 8.4 fL (7.4-10.4); PLATELET COUNT 288 x10^3/uL (130-400); RED BLOOD COUNT 2.95 x10^6/uL (4.38-5.82); RED CELL DISTRIBUTION WIDTH 14.3 % (9.4-14.8)
[2018-06-16 05:02] LABS: ANION GAP 8 mmol/L (5-15); CALCIUM 7.8 mg/dL (8.5-10.1); CHLORIDE 106 mmol/L (98-107); CREATININE 1.45 mg/dL (0.7-1.3)
[2018-06-16 05:35] LABS: BASOPHILS % (AUTO) 0 % (0-1); EOSINOPHILS # (AUTO) 0.32 x10^3/uL (0-0.4); EOSINOPHILS % (AUTO) 2 % (1-7); LYMPHOCYTES # (AUTO) 0.89 x10^3/uL (1-3.4); LYMPHOCYTES % (AUTO) 7 % (22-44); MD SCAN; MONOCYTES % (AUTO) 9 % (2-9); NEUTROPHILS # (AUTO) 10.96 x10^3/uL (1.8-6.8); NEUTROPHILS % (AUTO) 82 % (42-75)
[2018-06-16 06:52] VITALS: BP 93/55
[2018-06-16] MEDS: INSULIN LISPRO 100 UNITS/ML, PEN SQ-INSULIN SCH ×4 (07:00→21:22)
[2018-06-16] MEDS: LEVOTHYROXINE 50 MCG TABLET PO SCH (08:00)
[2018-06-16] MEDS: CARVEDILOL 3.125 MG TABLET PO SCH ×2 (08:00→18:00)
[2018-06-16] MEDS: GABAPENTIN 300 MG CAPSULE PO SCH ×3 (09:00→21:18)
[2018-06-16] MEDS: FINASTERIDE 5 MG TABLET PO SCH (09:00)
[2018-06-16] MEDS: PSYLLIUM PACKET PO SCH ×2 (09:00→21:00)
[2018-06-16] MEDS: SODIUM CHLORIDE FLUSH 10ML SYR IVF SCH ×2 (09:00→21:23)
[2018-06-16] MEDS: TEMPLATE NON-FORMULARY MED. (Brimonidine Tartrate/Timolol (Combigan Eye Drops) 1 DROP) EACHEYE SCH ×2 (09:00→21:00)
[2018-06-16] MEDS: LISINOPRIL 5 MG TABLET PO SCH (09:00)
[2018-06-16] MEDS: CYANOCOBALOMIN 100MCG TABLET PO SCH (09:00)
[2018-06-16] MEDS: CLOPIDOGREL 75 MG TABLET PO SCH (09:00)
[2018-06-16] MEDS: SERTRALINE 50MG TABLET PO SCH (09:00)
[2018-06-16] MEDS ORDERED: SODIUM CHLORIDE 0.9% 1,000ML IVBOLUS ONE (10:00)
[2018-06-16 13:01] VITALS: BP 125/77
--- NOTE | 2018-06-16 15:58 | NUR ---
[place] sheet with swallow precautions and strategies was placed on patient's whiteboard. Addendum: 06/16/18 at 1609 by KELLY RENNER Amended: Links added.
[2018-06-16] MEDS: CEFTRIAXONE PMX 2GM/50ML 50 ML IV SCH (17:57)
[2018-06-16 19:29] VITALS: BP 137/74
[2018-06-16] MEDS: ATORVASTATIN 80 MG TABLET PO SCH (21:18)
[2018-06-16] MEDS: INSULIN GLARGINE 100 UNITS/ML, PEN SQ-INSULIN SCH (21:22)
[2018-06-17 01:06] VITALS: BP 147/81
[2018-06-17] MEDS: LEVOTHYROXINE 50 MCG TABLET PO SCH (05:15)
[2018-06-17] MEDS: CARVEDILOL 3.125 MG TABLET PO SCH ×2 (05:15→17:48)
[2018-06-17 06:41] VITALS: BP 137/78
[2018-06-17] MEDS: TEMPLATE NON-FORMULARY MED. (Brimonidine Tartrate/Timolol (Combigan Eye Drops) 1 DROP) EACHEYE SCH ×2 (08:44→20:37)
[2018-06-17] MEDS: SODIUM CHLORIDE FLUSH 10ML SYR IVF SCH ×2 (08:44→20:36)
[2018-06-17 09:06] LABS: BASOPHILS # (AUTO) 0.02 x10^3/uL (0-0.1); BASOPHILS % (AUTO) 0 % (0-1); EOSINOPHILS # (AUTO) 0.46 x10^3/uL (0-0.4); EOSINOPHILS % (AUTO) 6 % (1-7); HEMOGRAM NOTE RECHECKED; LYMPHOCYTES # (AUTO) 0.98 x10^3/uL (1-3.4); LYMPHOCYTES % (AUTO) 12 % (22-44); MD NO; MEAN CORPUSCULAR HEMOGLOBIN 27.5 pg (27.5-34.5); MEAN CORPUSCULAR HGB CONC 32.1 g/dL (33.2-36.2); MEAN CORPUSCULAR VOLUME 85.8 fL (81-97); MEAN PLATELET VOLUME 8.1 fL (7.4-10.4); MONOCYTES % (AUTO) 10 % (2-9); NEUTROPHILS # (AUTO) 6.08 x10^3/uL (1.8-6.8); NEUTROPHILS % (AUTO) 73 % (42-75); PLATELET COUNT 379 x10^3/uL (130-400); RED BLOOD COUNT 3.71 x10^6/uL (4.38-5.82); RED CELL DISTRIBUTION WIDTH 14.4 % (9.4-14.8)
[2018-06-17 09:09] LABS: ANION GAP 7 mmol/L (5-15); CALCIUM 8.7 mg/dL (8.5-10.1); CHLORIDE 109 mmol/L (98-107); CREATININE 1.08 mg/dL (0.7-1.3)
[2018-06-17] MEDS: CYANOCOBALOMIN 100MCG TABLET PO SCH (09:13)
[2018-06-17] MEDS: FINASTERIDE 5 MG TABLET PO SCH (09:13)
[2018-06-17] MEDS: CLOPIDOGREL 75 MG TABLET PO SCH (09:13)
[2018-06-17] MEDS: GABAPENTIN 300 MG CAPSULE PO SCH ×3 (09:13→20:36)
[2018-06-17] MEDS: INSULIN LISPRO 100 UNITS/ML, PEN SQ-INSULIN SCH ×4 (09:13→20:37)
[2018-06-17] MEDS: SERTRALINE 50MG TABLET PO SCH (09:13)
[2018-06-17] MEDS: PSYLLIUM PACKET PO SCH ×2 (09:13→20:35)
[2018-06-17 13:06] VITALS: BP 112/66
[2018-06-17] MEDS: CEFTRIAXONE PMX 2GM/50ML 50 ML IV SCH (15:00)
[2018-06-17 20:22] VITALS: BP 168/89
[2018-06-17] MEDS: INSULIN GLARGINE 100 UNITS/ML, PEN SQ-INSULIN SCH (20:36)
[2018-06-17] MEDS: ATORVASTATIN 80 MG TABLET PO SCH (20:36)
[2018-06-18 01:11] VITALS: BP 123/68
[2018-06-18] MEDS: CARVEDILOL 3.125 MG TABLET PO SCH ×2 (05:23→20:02)
[2018-06-18] MEDS: LEVOTHYROXINE 50 MCG TABLET PO SCH (05:23)
[2018-06-18 08:48] VITALS: BP 150/86
[2018-06-18] MEDS: PSYLLIUM PACKET PO SCH ×2 (08:51→19:54)
[2018-06-18] MEDS: CYANOCOBALOMIN 100MCG TABLET PO SCH (08:52)
[2018-06-18] MEDS: SERTRALINE 50MG TABLET PO SCH (08:52)
[2018-06-18] MEDS: FINASTERIDE 5 MG TABLET PO SCH (08:52)
[2018-06-18] MEDS: GABAPENTIN 300 MG CAPSULE PO SCH ×3 (08:52→20:03)
[2018-06-18] MEDS: CLOPIDOGREL 75 MG TABLET PO SCH (08:52)
[2018-06-18] MEDS: INSULIN LISPRO 100 UNITS/ML, PEN SQ-INSULIN SCH ×4 (08:52→20:04)
[2018-06-18] MEDS: SODIUM CHLORIDE FLUSH 10ML SYR IVF SCH ×2 (08:53→20:03)
[2018-06-18] MEDS: TEMPLATE NON-FORMULARY MED. (Brimonidine Tartrate/Timolol (Combigan Eye Drops) 1 DROP) EACHEYE SCH ×2 (08:53→19:15)
[2018-06-18 13:47] VITALS: BP 151/79
[2018-06-18] MEDS: CEFTRIAXONE PMX 2GM/50ML 50 ML IV SCH (16:30)
[2018-06-18] MEDS: ATORVASTATIN 80 MG TABLET PO SCH (20:03)
[2018-06-18] MEDS: INSULIN GLARGINE 100 UNITS/ML, PEN SQ-INSULIN SCH (20:03)
[2018-06-18 20:52] VITALS: BP 134/77
[2018-06-19 02:27] VITALS: BP 130/75
[2018-06-19] MEDS: CARVEDILOL 3.125 MG TABLET PO SCH ×2 (05:14→17:33)
[2018-06-19] MEDS: LEVOTHYROXINE 50 MCG TABLET PO SCH (05:14)
[2018-06-19 06:57] VITALS: BP 121/70
[2018-06-19] MEDS: INSULIN LISPRO 100 UNITS/ML, PEN SQ-INSULIN SCH ×4 (07:00→20:13)
[2018-06-19] MEDS: PSYLLIUM PACKET PO SCH ×2 (09:00→20:13)
[2018-06-19] MEDS: SODIUM CHLORIDE FLUSH 10ML SYR IVF SCH ×2 (09:00→20:13)
[2018-06-19] MEDS: TEMPLATE NON-FORMULARY MED. (Brimonidine Tartrate/Timolol (Combigan Eye Drops) 1 DROP) EACHEYE SCH ×2 (09:00→20:13)
[2018-06-19] MEDS: CYANOCOBALOMIN 100MCG TABLET PO SCH (09:57)
[2018-06-19] MEDS: SERTRALINE 50MG TABLET PO SCH (09:57)
[2018-06-19] MEDS: CLOPIDOGREL 75 MG TABLET PO SCH (09:57)
[2018-06-19] MEDS: GABAPENTIN 300 MG CAPSULE PO SCH ×3 (09:57→20:13)
[2018-06-19] MEDS: FINASTERIDE 5 MG TABLET PO SCH (09:57)
[2018-06-19] MEDS ORDERED: CLOP75TA PO (12:38)
[2018-06-19] MEDS ORDERED: FINA5TAB4 PO (12:38)
[2018-06-19] MEDS ORDERED: LISI-167 PO (12:38)
[2018-06-19 13:35] VITALS: BP 153/83
[2018-06-19] MEDS: CEFTRIAXONE PMX 2GM/50ML 50 ML IV SCH (16:44)
[2018-06-19 20:03] VITALS: BP 149/75
[2018-06-19] MEDS: ATORVASTATIN 80 MG TABLET PO SCH (20:13)
[2018-06-19] MEDS: INSULIN GLARGINE 100 UNITS/ML, PEN SQ-INSULIN SCH (20:14)
[2018-06-20 03:24] VITALS: BP 131/70
[2018-06-20] MEDS: LEVOTHYROXINE 50 MCG TABLET PO SCH (05:09)
[2018-06-20] MEDS: CARVEDILOL 3.125 MG TABLET PO SCH ×2 (05:10→17:44)
[2018-06-20 07:00] VITALS: BP 129/66
[2018-06-20] MEDS: INSULIN LISPRO 100 UNITS/ML, PEN SQ-INSULIN SCH ×4 (07:00→20:59)
[2018-06-20] MEDS: TEMPLATE NON-FORMULARY MED. (Brimonidine Tartrate/Timolol (Combigan Eye Drops) 1 DROP) EACHEYE SCH ×2 (08:03→19:21)
[2018-06-20] MEDS: SODIUM CHLORIDE FLUSH 10ML SYR IVF SCH ×2 (09:00→21:00)
[2018-06-20] MEDS: GABAPENTIN 300 MG CAPSULE PO SCH ×3 (09:28→20:59)
[2018-06-20] MEDS: PSYLLIUM PACKET PO SCH ×2 (09:28→20:58)
[2018-06-20] MEDS: FINASTERIDE 5 MG TABLET PO SCH (09:29)
[2018-06-20] MEDS: SERTRALINE 50MG TABLET PO SCH (09:29)
[2018-06-20] MEDS: CYANOCOBALOMIN 100MCG TABLET PO SCH (09:29)
[2018-06-20] MEDS: CLOPIDOGREL 75 MG TABLET PO SCH (09:29)
[2018-06-20 12:41] VITALS: BP 122/62
[2018-06-20] MEDS: CEFTRIAXONE PMX 2GM/50ML 50 ML IV SCH (17:45)
[2018-06-20 18:52] VITALS: BP 126/65
[2018-06-20] MEDS: ATORVASTATIN 80 MG TABLET PO SCH (20:59)
[2018-06-20] MEDS: INSULIN GLARGINE 100 UNITS/ML, PEN SQ-INSULIN SCH (21:00)
[2018-06-21 01:15] VITALS: BP 151/86
[2018-06-21] MEDS: CARVEDILOL 3.125 MG TABLET PO SCH ×2 (05:38→18:46)
[2018-06-21] MEDS: LEVOTHYROXINE 50 MCG TABLET PO SCH (05:38)
[2018-06-21 06:53] VITALS: BP 168/91
[2018-06-21] MEDS: INSULIN LISPRO 100 UNITS/ML, PEN SQ-INSULIN SCH ×4 (08:05→21:40)
[2018-06-21] MEDS: TEMPLATE NON-FORMULARY MED. (Brimonidine Tartrate/Timolol (Combigan Eye Drops) 1 DROP) EACHEYE SCH ×2 (09:09→21:00)
[2018-06-21] MEDS: PSYLLIUM PACKET PO SCH ×2 (09:09→21:39)
[2018-06-21] MEDS: FINASTERIDE 5 MG TABLET PO SCH (09:09)
[2018-06-21] MEDS: CYANOCOBALOMIN 100MCG TABLET PO SCH (09:09)
[2018-06-21] MEDS: SERTRALINE 50MG TABLET PO SCH (09:09)
[2018-06-21] MEDS: CLOPIDOGREL 75 MG TABLET PO SCH (09:09)
[2018-06-21] MEDS: GABAPENTIN 300 MG CAPSULE PO SCH ×3 (09:09→21:39)
[2018-06-21] MEDS: SODIUM CHLORIDE FLUSH 10ML SYR IVF SCH ×2 (09:10→21:00)
[2018-06-21 12:51] VITALS: BP 97/59
[2018-06-21] MEDS: CEFTRIAXONE PMX 2GM/50ML 50 ML IV SCH (15:04)
[2018-06-21 18:44] VITALS: BP 150/79
[2018-06-21 19:08] VITALS: BP 143/77
[2018-06-21] MEDS: ATORVASTATIN 80 MG TABLET PO SCH (21:39)
[2018-06-21] MEDS: INSULIN GLARGINE 100 UNITS/ML, PEN SQ-INSULIN SCH (21:40)
[2018-06-22 01:16] VITALS: BP 138/72
[2018-06-22] MEDS: LEVOTHYROXINE 50 MCG TABLET PO SCH (05:59)
[2018-06-22] MEDS: CARVEDILOL 3.125 MG TABLET PO SCH ×2 (05:59→18:29)
[2018-06-22] MEDS: INSULIN LISPRO 100 UNITS/ML, PEN SQ-INSULIN SCH ×4 (07:16→20:28)
[2018-06-22 07:22] VITALS: BP 146/75
[2018-06-22] MEDS: CYANOCOBALOMIN 100MCG TABLET PO SCH (09:17)
[2018-06-22] MEDS: SERTRALINE 50MG TABLET PO SCH (09:17)
[2018-06-22] MEDS: FINASTERIDE 5 MG TABLET PO SCH (09:17)
[2018-06-22] MEDS: TEMPLATE NON-FORMULARY MED. (Brimonidine Tartrate/Timolol (Combigan Eye Drops) 1 DROP) EACHEYE SCH ×2 (09:17→20:30)
[2018-06-22] MEDS: PSYLLIUM PACKET PO SCH ×2 (09:17→20:27)
[2018-06-22] MEDS: GABAPENTIN 300 MG CAPSULE PO SCH ×3 (09:17→20:27)
[2018-06-22] MEDS: SODIUM CHLORIDE FLUSH 10ML SYR IVF SCH ×2 (09:18→20:31)
[2018-06-22 12:56] VITALS: BP 133/79
[2018-06-22] MEDS: CEFTRIAXONE PMX 2GM/50ML 50 ML IV SCH (15:48)
[2018-06-22 18:28] VITALS: BP_SYST 93; BP_SYST 98; BP_DIAS 58
[2018-06-22 19:13] VITALS: BP 108/69
[2018-06-22] MEDS: ATORVASTATIN 80 MG TABLET PO SCH (20:27)
[2018-06-22] MEDS: INSULIN GLARGINE 100 UNITS/ML, PEN SQ-INSULIN SCH (20:52)
[2018-06-23 00:11] VITALS: BP 162/75
[2018-06-23] MEDS: CARVEDILOL 3.125 MG TABLET PO SCH ×2 (05:24→16:43)
[2018-06-23] MEDS: LEVOTHYROXINE 50 MCG TABLET PO SCH (05:25)
[2018-06-23 08:30] VITALS: BP 147/81
[2018-06-23] MEDS: TEMPLATE NON-FORMULARY MED. (Brimonidine Tartrate/Timolol (Combigan Eye Drops) 1 DROP) EACHEYE SCH ×2 (09:15→21:00)
[2018-06-23] MEDS: INSULIN LISPRO 100 UNITS/ML, PEN SQ-INSULIN SCH ×4 (09:15→21:09)
[2018-06-23] MEDS: SERTRALINE 50MG TABLET PO SCH (09:16)
[2018-06-23] MEDS: PSYLLIUM PACKET PO SCH ×2 (09:16→21:07)
[2018-06-23] MEDS: GABAPENTIN 300 MG CAPSULE PO SCH ×3 (09:16→21:07)
[2018-06-23] MEDS: CYANOCOBALOMIN 100MCG TABLET PO SCH (09:16)
[2018-06-23] MEDS: FINASTERIDE 5 MG TABLET PO SCH (09:16)
[2018-06-23] MEDS: SODIUM CHLORIDE FLUSH 10ML SYR IVF SCH ×2 (09:16→21:07)
[2018-06-23 11:25] LABS: ANION GAP 6 mmol/L (5-15); CALCIUM 8.5 mg/dL (8.5-10.1); CHLORIDE 105 mmol/L (98-107); CREATININE 0.95 mg/dL (0.7-1.3)
[2018-06-23] MEDS: CEFTRIAXONE PMX 2GM/50ML 50 ML IV SCH (14:44)
[2018-06-23 14:45] VITALS: BP 123/69
[2018-06-23 19:06] VITALS: BP 140/78
[2018-06-23] MEDS: ATORVASTATIN 80 MG TABLET PO SCH (21:07)
[2018-06-23] MEDS: INSULIN GLARGINE 100 UNITS/ML, PEN SQ-INSULIN SCH (21:10)
[2018-06-24 01:39] VITALS: BP 131/71
[2018-06-24] MEDS: LEVOTHYROXINE 50 MCG TABLET PO SCH (06:21)
[2018-06-24] MEDS: CARVEDILOL 3.125 MG TABLET PO SCH ×2 (06:21→16:21)
[2018-06-24 08:58] VITALS: BP 156/81
[2018-06-24] MEDS: CYANOCOBALOMIN 100MCG TABLET PO SCH (09:19)
[2018-06-24] MEDS: PSYLLIUM PACKET PO SCH ×2 (09:19→20:33)
[2018-06-24] MEDS: TEMPLATE NON-FORMULARY MED. (Brimonidine Tartrate/Timolol (Combigan Eye Drops) 1 DROP) EACHEYE SCH ×2 (09:19→20:33)
[2018-06-24] MEDS: FINASTERIDE 5 MG TABLET PO SCH (09:19)
[2018-06-24] MEDS: INSULIN LISPRO 100 UNITS/ML, PEN SQ-INSULIN SCH ×4 (09:19→20:32)
[2018-06-24] MEDS: GABAPENTIN 300 MG CAPSULE PO SCH ×3 (09:19→20:32)
[2018-06-24] MEDS: SODIUM CHLORIDE FLUSH 10ML SYR IVF SCH ×2 (09:19→20:32)
[2018-06-24] MEDS: SERTRALINE 50MG TABLET PO SCH (09:20)
[2018-06-24] MEDS ORDERED: LEUPROLIDE SQ ONE (12:00)
[2018-06-24 14:47] VITALS: BP 144/78
[2018-06-24] MEDS: CEFTRIAXONE PMX 2GM/50ML 50 ML IV SCH (15:04)
[2018-06-24] MEDS: INSULIN GLARGINE 100 UNITS/ML, PEN SQ-INSULIN SCH (20:31)
[2018-06-24] MEDS: ATORVASTATIN 80 MG TABLET PO SCH (20:32)
[2018-06-24 21:05] VITALS: BP 129/71
[2018-06-25 00:53] VITALS: BP 143/78
[2018-06-25] MEDS: CARVEDILOL 3.125 MG TABLET PO SCH ×2 (05:55→17:15)
[2018-06-25] MEDS: LEVOTHYROXINE 50 MCG TABLET PO SCH (05:55)
[2018-06-25] MEDS: INSULIN LISPRO 100 UNITS/ML, PEN SQ-INSULIN SCH ×4 (07:00→21:57)
[2018-06-25 08:31] VITALS: BP 107/65
[2018-06-25] MEDS: TEMPLATE NON-FORMULARY MED. (Brimonidine Tartrate/Timolol (Combigan Eye Drops) 1 DROP) EACHEYE SCH ×2 (09:00→21:00)
[2018-06-25] MEDS: SODIUM CHLORIDE FLUSH 10ML SYR IVF SCH ×2 (09:00→21:57)
[2018-06-25] MEDS: CYANOCOBALOMIN 100MCG TABLET PO SCH (09:24)
[2018-06-25] MEDS: SERTRALINE 50MG TABLET PO SCH (09:24)
[2018-06-25] MEDS: GABAPENTIN 300 MG CAPSULE PO SCH ×3 (09:24→21:57)
[2018-06-25] MEDS: PSYLLIUM PACKET PO SCH ×2 (09:24→21:00)
[2018-06-25] MEDS: FINASTERIDE 5 MG TABLET PO SCH (09:25)
[2018-06-25 09:50] VITALS: BP 113/69
[2018-06-25 12:35] VITALS: BP 148/83
[2018-06-25 19:38] VITALS: BP 112/70
[2018-06-25] MEDS: INSULIN GLARGINE 100 UNITS/ML, PEN SQ-INSULIN SCH (21:57)
[2018-06-25] MEDS: ATORVASTATIN 80 MG TABLET PO SCH (21:57)
[2018-06-26 02:23] VITALS: BP 147/78
[2018-06-26] MEDS: LEVOTHYROXINE 50 MCG TABLET PO SCH (05:55)
[2018-06-26] MEDS: CARVEDILOL 3.125 MG TABLET PO SCH ×2 (05:55→16:59)
[2018-06-26 07:23] VITALS: BP 134/83
[2018-06-26] MEDS: TEMPLATE NON-FORMULARY MED. (Brimonidine Tartrate/Timolol (Combigan Eye Drops) 1 DROP) EACHEYE SCH ×2 (08:05→20:28)
[2018-06-26] MEDS: INSULIN LISPRO 100 UNITS/ML, PEN SQ-INSULIN SCH ×4 (08:05→20:30)
[2018-06-26] MEDS: PSYLLIUM PACKET PO SCH ×2 (08:29→20:28)
[2018-06-26] MEDS: CLOPIDOGREL 75 MG TABLET PO SCH (08:55)
[2018-06-26] MEDS: CYANOCOBALOMIN 100MCG TABLET PO SCH (08:55)
[2018-06-26] MEDS: GABAPENTIN 300 MG CAPSULE PO SCH ×3 (08:55→20:29)
[2018-06-26] MEDS: FINASTERIDE 5 MG TABLET PO SCH (08:55)
[2018-06-26] MEDS: SODIUM CHLORIDE FLUSH 10ML SYR IVF SCH ×2 (08:55→20:29)
[2018-06-26] MEDS: SERTRALINE 50MG TABLET PO SCH (08:55)
[2018-06-26] MEDS: CEFTRIAXONE PMX 2GM/50ML 50 ML IV SCH (12:00)
[2018-06-26 13:17] VITALS: BP 132/62
[2018-06-26 19:32] VITALS: BP 149/82
[2018-06-26] MEDS: ATORVASTATIN 80 MG TABLET PO SCH (20:29)
[2018-06-26] MEDS: INSULIN GLARGINE 100 UNITS/ML, PEN SQ-INSULIN SCH (20:30)
[2018-06-27 02:47] VITALS: BP 148/80
[2018-06-27] MEDS: LEVOTHYROXINE 50 MCG TABLET PO SCH (05:23)
[2018-06-27] MEDS: CARVEDILOL 3.125 MG TABLET PO SCH ×2 (05:23→17:54)
[2018-06-27 06:55] VITALS: BP 111/66
[2018-06-27] MEDS: TEMPLATE NON-FORMULARY MED. (Brimonidine Tartrate/Timolol (Combigan Eye Drops) 1 DROP) EACHEYE SCH ×2 (07:50→20:48)
[2018-06-27] MEDS: CLOPIDOGREL 75 MG TABLET PO SCH (08:26)
[2018-06-27] MEDS: CYANOCOBALOMIN 100MCG TABLET PO SCH (08:26)
[2018-06-27] MEDS: SERTRALINE 50MG TABLET PO SCH (08:27)
[2018-06-27] MEDS: PSYLLIUM PACKET PO SCH ×2 (08:27→20:48)
[2018-06-27] MEDS: FINASTERIDE 5 MG TABLET PO SCH (08:27)
[2018-06-27] MEDS: GABAPENTIN 300 MG CAPSULE PO SCH ×3 (08:27→20:47)
[2018-06-27] MEDS: INSULIN LISPRO 100 UNITS/ML, PEN SQ-INSULIN SCH ×4 (08:27→20:47)
[2018-06-27] MEDS: SODIUM CHLORIDE FLUSH 10ML SYR IVF SCH ×2 (08:29→20:48)
[2018-06-27] MEDS: CEFTRIAXONE PMX 2GM/50ML 50 ML IV SCH (11:21)
[2018-06-27 13:15] VITALS: BP 160/89
[2018-06-27 18:51] VITALS: BP_SYST 162; BP_SYST 166; BP_DIAS 89; BP_DIAS 91
[2018-06-27] MEDS: ATORVASTATIN 80 MG TABLET PO SCH (20:47)
[2018-06-27] MEDS: INSULIN GLARGINE 100 UNITS/ML, PEN SQ-INSULIN SCH (20:48)
[2018-06-28 00:04] VITALS: BP 144/80
[2018-06-28] MEDS: CARVEDILOL 3.125 MG TABLET PO SCH (05:23)
[2018-06-28] MEDS: LEVOTHYROXINE 50 MCG TABLET PO SCH (05:23)
[2018-06-28] MEDS: INSULIN LISPRO 100 UNITS/ML, PEN SQ-INSULIN SCH ×3 (07:00→17:02)
[2018-06-28 08:24] VITALS: BP 99/64
[2018-06-28] MEDS: TEMPLATE NON-FORMULARY MED. (Brimonidine Tartrate/Timolol (Combigan Eye Drops) 1 DROP) EACHEYE SCH (09:00)
[2018-06-28] MEDS: CLOPIDOGREL 75 MG TABLET PO SCH (10:29)
[2018-06-28] MEDS: CYANOCOBALOMIN 100MCG TABLET PO SCH (10:29)
[2018-06-28] MEDS: FINASTERIDE 5 MG TABLET PO SCH (10:29)
[2018-06-28] MEDS: GABAPENTIN 300 MG CAPSULE PO SCH (10:29)
[2018-06-28] MEDS: SODIUM CHLORIDE FLUSH 10ML SYR IVF SCH (10:29)
[2018-06-28] MEDS: SERTRALINE 50MG TABLET PO SCH (10:29)
[2018-06-28] MEDS: PSYLLIUM PACKET PO SCH (10:29)
[2018-06-28] MEDS: CEFTRIAXONE PMX 2GM/50ML 50 ML IV SCH (12:41)
[2018-06-28 15:38] VITALS: BP 147/80
== END 2018-06-28 17:14 | DRG 853 ==
LOC: ED 15:05 → EDIP 16:42 → OBSVTOIN 16:42 → 3NE 18:40
PROVIDERS: ADMIT Internal Medicine; ATTEND Internal Medicine
PROC: 0T5B8ZZ Destruction of Bladder, Via Natural or Artificial Opening Endoscopic (ICD-10-PCS; 2018-06-12)
PROC: 0TCB8ZZ Extirpation of Matter from Bladder, Via Natural or Artificial Opening Endoscopic (ICD-10-PCS; 2018-06-12)
PROC: 0TBB8ZX Excision of Bladder, Via Natural or Artificial Opening Endoscopic, Diagnostic (ICD-10-PCS; principal; 2018-06-12 15:00)
PROC: 0T9B70Z Drainage of Bladder with Drainage Device, Via Natural or Artificial Opening (ICD-10-PCS; 2018-06-13)
DX: A41.59 Other Gram-negative sepsis (principal); N17.0 Acute kidney failure with tubular necrosis; I21.4 Non-ST elevation (NSTEMI) myocardial infarction; N39.0 Urinary tract infection, site not specified; I50.32 Chronic diastolic (congestive) heart failure; C64.1 Malignant neoplasm of right kidney, except renal pelvis; N32.89 Other specified disorders of bladder; R33.9 Retention of urine, unspecified; R31.0 Gross hematuria; D64.9 Anemia, unspecified; E03.9 Hypothyroidism, unspecified; E11.65 Type 2 diabetes mellitus with hyperglycemia; E78.5 Hyperlipidemia, unspecified; G62.9 Polyneuropathy, unspecified; I10 Essential (primary) hypertension; I25.10 Atherosclerotic heart disease of native coronary artery without angina pectoris; I25.2 Old myocardial infarction; Z66 Do not resuscitate; I69.30 Unspecified sequelae of cerebral infarction; Z79.02 Long term (current) use of antithrombotics/antiplatelets; Z87.820 Personal history of traumatic brain injury; Z95.5 Presence of coronary angioplasty implant and graft
CPT/HCPCS: 36415; 70450; 74178; 76770; 80048; 80053; 81001; 82962; 83735; 84100; 85014; 85018; 85025; 85610; 85730; 86850; 86900; 87040; 87077; 87086; 87186; 87324; 88305; G0378; J0690; J0696; J2704; J3010; Q9967; J1815; J7030; J7040